=== PATIENT | female | born 1940 | race Caucasian/White ===

== ENCOUNTER → 2017-04-11 | Outpatient (CLI) | payer MEDICARE, OTHER ==
[~2017-04-11] MED LIST: ASPI81TA85 PO; LEVO75TA4 PO; LOSA100T36 PO; OCUVTAB PO; REQU1TAB16 PO; TRIA37.53 PO; VITA100067 PO; [UNRECOGNIZED DRUG - CODE] PO
[2017-04-11 14:12] LABS: CALCIUM LEVEL 9.7 MG/DL (8.8-10.2); CREATININE FOR GFR 1.09 MG/DL (0.55-1.02)
--- NOTE | 2017-04-11 16:50 | REP ---
REASON FOR EXAM: Hypertension. COMPARISON: 12/23/2007, the only prior. FINDINGS: The superior mediastinal structures are midline. The cardiac silhouette is unremarkable in size, shape, and position. The diaphragmatic surfaces of the lungs are regular, and the costophrenic angles are clear. The pulmonary tristan are clear. The imaged osseous structures are intact. No change from prior exam. IMPRESSION: There is no acute cardiopulmonary disease. Signed by Timi Blake DO 04/12/2017 10:50 A
== END ==
LOC: M LAB 12:56
PROVIDERS: ATTEND Physician Assistant
DX: I10 Essential (primary) hypertension (principal); E11.9 Type 2 diabetes mellitus without complications; R05 Cough

== ENCOUNTER → 2017-09-04 | Outpatient (CLI) | payer MEDICARE, OTHER ==
[2017-09-04 11:05] LABS: MEAN CORPUSCULAR HGB CONC 33.5 g/dl (32.0-36.5); MEAN CORPUSCULAR VOLUME 92.6 fl (80.0-96.0); PLATELET COUNT, AUTOMATED 315 10^3/uL (150-450); RED CELL DISTRIBUTION WIDTH 13.3 % (11.5-14.5); WHITE BLOOD COUNT 12.5 10^3/uL (4.0-10.0)
[2017-09-04 11:25] LABS: ALBUMIN/GLOBULIN RATIO 1.05 (1.00-1.93); BILIRUBIN,TOTAL 0.4 MG/DL (0.2-1.0); CALCIUM LEVEL 9.2 MG/DL (8.8-10.2); CREATININE FOR GFR 1.41 MG/DL (0.55-1.02); FREE T4 1.13 NG/DL (0.76-1.46); GLOMERULAR FILTRATION RATE 38.6 (>39); POTASSIUM SERUM 4.3 MEQ/L (3.5-5.1); TOTAL PROTEIN 7.8 GM/DL (6.4-8.2)
== END ==
LOC: M LAB 10:18
PROVIDERS: ATTEND Physician Assistant
DX: E11.9 Type 2 diabetes mellitus without complications (principal); E03.9 Hypothyroidism, unspecified; I10 Essential (primary) hypertension

== ENCOUNTER → 2017-11-27 | Outpatient (CLI) | payer MEDICARE, OTHER ==
[2017-11-27 12:02] LABS: ESTIMATED AVERAGE GLUCOSE 160 MG/DL (60-110); HEMOGLOBIN A1c 7.2 %
[2017-11-27 13:11] LABS: MALB URINE SIEMENS 10.3 MG/L; MAU/CREAT RATIO 4.4 MCG/MG (0.0-30.0)
[2017-11-27 13:14] LABS: ANION GAP 10 MEQ/L (8-16); BLOOD UREA NITROGEN 22 MG/DL (7-18); CALCIUM LEVEL 9.4 MG/DL (8.8-10.2); CARBON DIOXIDE LEVEL 26 MEQ/L (21-32); CHLORIDE LEVEL 102 MEQ/L (98-107); GLOMERULAR FILTRATION RATE 57.4 (>39); GLUCOSE, FASTING 102 MG/DL (70-100); POTASSIUM SERUM 4.2 MEQ/L (3.5-5.1); SODIUM LEVEL 138 MEQ/L (136-145)
== END ==
LOC: M LAB 10:59
DX: E03.9 Hypothyroidism, unspecified (principal); E11.9 Type 2 diabetes mellitus without complications; N18.3 Chronic kidney disease, stage 3 (moderate)
CPT/HCPCS: 84443

== ENCOUNTER → 2018-05-14 | Outpatient (REF) | payer MEDICARE, OTHER | LOC: M SFHCLERA 16:10 | DX: R30.0 Dysuria (principal) | CPT/HCPCS: 87186 ==

== ENCOUNTER → 2018-06-06 | Outpatient (CLI) | payer MEDICARE ==
[2018-06-06 11:11] LABS: HEMATOCRIT 41.6 % (36.0-47.0); HEMOGLOBIN 13.5 g/dl (12.0-15.5); MEAN CORPUSCULAR HEMOGLOBIN 30.8 pg (27.0-33.0); MEAN CORPUSCULAR HGB CONC 32.5 g/dl (32.0-36.5); MEAN CORPUSCULAR VOLUME 94.8 fl (80.0-96.0); PLATELET COUNT, AUTOMATED 309 10^3/uL (150-450); RED BLOOD COUNT 4.39 10^6/uL (4.00-5.40); RED CELL DISTRIBUTION WIDTH 13.2 % (11.5-14.5); WHITE BLOOD COUNT 10.5 10^3/uL (4.0-10.0)
[2018-06-06 11:37] LABS: ESTIMATED AVERAGE GLUCOSE 128 MG/DL (60-110); HEMOGLOBIN A1c 6.1 %
[2018-06-06 11:46] LABS: ALBUMIN 3.8 GM/DL (3.2-5.2); ALBUMIN/GLOBULIN RATIO 0.95 (1.00-1.93); ALKALINE PHOSPHATASE 90 U/L (45-117); ALT/SGPT 25 U/L (12-78); ANION GAP 8 MEQ/L (8-16); AST/SGOT 21 U/L (7-37); BILIRUBIN,TOTAL 0.4 MG/DL (0.2-1.0); BLOOD UREA NITROGEN 21 MG/DL (7-18); CALCIUM LEVEL 8.9 MG/DL (8.8-10.2); CARBON DIOXIDE LEVEL 30 MEQ/L (21-32); CHLORIDE LEVEL 102 MEQ/L (98-107); CHOLESTEROL LEVEL 277 MG/DL (<200); CHOLESTEROL RISK RATIO 7.486 (<5); CREATININE FOR GFR 0.98 MG/DL (0.55-1.30); FREE T4 1.08 NG/DL (0.76-1.46); GLOMERULAR FILTRATION RATE 58.6 (>39); GLUCOSE, FASTING 94 MG/DL (70-100); HDL CHOLESTEROL 37 MG/DL (>40); LDL CHOLESTEROL 172 MG/DL (<100); NON-HDL-C 240 MG/DL; POTASSIUM SERUM 3.8 MEQ/L (3.5-5.1); SODIUM LEVEL 140 MEQ/L (136-145); TOTAL PROTEIN 7.8 GM/DL (6.4-8.2); TRIGLYCERIDES LEVEL 338 MG/DL (<150)
== END ==
LOC: M LAB 10:48
DX: G25.81 Restless legs syndrome (principal); E11.9 Type 2 diabetes mellitus without complications; E03.9 Hypothyroidism, unspecified
CPT/HCPCS: 84443

== ENCOUNTER → 2018-10-31 | Outpatient (REF) | payer MEDICARE, OTHER ==
[~2018-10-31] MED LIST changes: -LOSA100T36 PO; +LOSA100T50 PO
== END ==
LOC: M LAB REF 12:35
PROVIDERS: ATTEND Physician Assistant
DX: R30.0 Dysuria (principal); J20.9 Acute bronchitis, unspecified

== ENCOUNTER → 2018-11-19 | Outpatient (REF) | payer MEDICARE, OTHER | LOC: M SFHCADAM 13:50 | PROVIDERS: ATTEND Physician Assistant | DX: N30.00 Acute cystitis without hematuria (principal) ==

== ENCOUNTER → 2019-03-06 | Outpatient (REF) | payer MEDICARE, OTHER | LOC: M LAB REF 16:24 | PROVIDERS: ATTEND Physician Assistant | DX: R30.0 Dysuria (principal) ==

== ENCOUNTER → 2019-03-25 | Outpatient (CLI) | payer MEDICARE, OTHER ==
[2019-03-25 11:33] LABS: HEMOGLOBIN A1c 6.9 %
[2019-03-25 11:50] LABS: ALBUMIN 3.7 GM/DL (3.2-5.2); BILIRUBIN,TOTAL 0.4 MG/DL (0.2-1.0); CALCIUM LEVEL 9.7 MG/DL (8.8-10.2); CHOLESTEROL RISK RATIO 5.977 (<5); CREATININE FOR GFR 1.08 MG/DL (0.55-1.30); FREE T4 1.18 NG/DL (0.76-1.46); GLOMERULAR FILTRATION RATE 52.2 (>39); POTASSIUM SERUM 4.3 MEQ/L (3.5-5.1); THYROID STIMULATING HORMONE 1.91 uIU/ML (0.358-3.740); TOTAL PROTEIN 7.5 GM/DL (6.4-8.2)
== END ==
LOC: M LAB 10:28
PROVIDERS: ATTEND Family Medicine
DX: I10 Essential (primary) hypertension (principal); E03.9 Hypothyroidism, unspecified; E11.9 Type 2 diabetes mellitus without complications; E78.49 Other hyperlipidemia

== ENCOUNTER → 2019-04-10 | Outpatient (CLI) | payer MEDICARE, OTHER ==
[2019-04-10 14:50] LABS: CREATININE FOR GFR 1.01 MG/DL (0.55-1.30); GLOMERULAR FILTRATION RATE 56.4 (>39)
== END ==
LOC: M LAB 13:55
PROVIDERS: ATTEND Student in an Organized Health Care Education/Training Program
DX: I67.1 Cerebral aneurysm, nonruptured (principal)

== ENCOUNTER → 2019-05-06 | Outpatient (REF) | payer MEDICARE, OTHER | LOC: M LAB REF 19:25 | PROVIDERS: ATTEND Physician Assistant | DX: N39.0 Urinary tract infection, site not specified (principal) ==

== ENCOUNTER → 2019-05-07 | Outpatient (CLI) | payer MEDICARE, OTHER ==
[2019-05-07 09:13] LABS: CREATININE FOR GFR 1.15 MG/DL (0.55-1.30); GLOMERULAR FILTRATION RATE 48.6 (>39)
== END ==
LOC: M LAB 08:20
PROVIDERS: ATTEND Student in an Organized Health Care Education/Training Program
DX: I67.1 Cerebral aneurysm, nonruptured (principal)

== ENCOUNTER → 2019-06-01 | Outpatient (REF) | payer MEDICARE, OTHER | LOC: M LAB REF 13:11 | PROVIDERS: ATTEND Physician Assistant | DX: N39.0 Urinary tract infection, site not specified (principal) ==

== ENCOUNTER → 2019-09-25 | Outpatient (CLI) | payer MEDICARE ==
[2019-09-25 14:56] LABS: HEMOGLOBIN A1c 6.8 %
[2019-09-25 15:02] LABS: ALT/SGPT 29 U/L (12-78); BILIRUBIN,TOTAL 0.3 MG/DL (0.2-1.0); BLOOD UREA NITROGEN 31 MG/DL (7-18); CALCIUM LEVEL 9.4 MG/DL (8.8-10.2); CARBON DIOXIDE LEVEL 30 MEQ/L (21-32); CHLORIDE LEVEL 103 MEQ/L (98-107); CREATININE FOR GFR 0.84 MG/DL (0.55-1.30); GLOMERULAR FILTRATION RATE > 60.0 (>39); GLUCOSE, FASTING 90 MG/DL (70-100); POTASSIUM SERUM 4.4 MEQ/L (3.5-5.1); SODIUM LEVEL 141 MEQ/L (136-145); TOTAL PROTEIN 7.6 GM/DL (6.4-8.2)
[2019-09-25 15:09] LABS: MAU/CREAT RATIO 8.5 MCG/MG (0.0-30.0)
== END ==
LOC: M LAB 13:09
PROVIDERS: ATTEND Physician Assistant
DX: E11.9 Type 2 diabetes mellitus without complications (principal)

== ENCOUNTER → 2019-11-10 | Outpatient (CLI) | payer MEDICARE ==
[2019-11-10 15:29] LABS: FREE T4 1.25 NG/DL (0.76-1.46); THYROID STIMULATING HORMONE 1.06 uIU/ML (0.358-3.740)
== END ==
LOC: M LAB 13:50
PROVIDERS: ATTEND Family Medicine
DX: E03.9 Hypothyroidism, unspecified (principal)

== ENCOUNTER → 2019-11-10 | Outpatient (CLI) | payer MEDICARE ==
--- NOTE | 2019-11-10 14:38 | REPMRS ---
Patient History The patient states she has not had a clinical breast exam in over a year. Family history of breast cancer at age 50 or over in sister, breast cancer at age 50 or over in sister, breast cancer under age 50 in daughter, breast cancer at age 50 or over in paternal aunt, breast cancer at age 50 or over in paternal aunt, colorectal cancer at age 50 or over in paternal aunt, prostate cancer at age 50 or over in father. Took estrogen for 21 years. Digital Woman Screen Mammo: November 10, 2019 - Exam #: [id number] Bilateral CC and MLO view(s) were taken. Technologist: Jessica Warren, Technologist Prior study comparison: July 02, 2016, digital woman screen mammo performed at [facility], [place]. June 28, 2015, digital woman screen mammo performed at [facility], [place]. October 09, 2013, digital woman screen mammo performed at [facility], [place]. FINDINGS: The breast tissue is heterogeneously dense. This may lower the sensitivity of mammography. There is a moderate amount of heterogeneously dense fibroglandular tissue which is fairly symmetric. There is no interval development of dominant mass, architectural distortion, or grouped microcalcification typical of malignancy. There has been no change in the appearance of the mammogram from the prior studies. 3-D tomosynthesis shows no additional findings. Assessment: BI-RADS/ACR category 1 mammogram. Negative Mammogram. Recommendation Routine screening mammogram of both breasts in 1 year (for women over age 40). This patient's Lifetime Breast Cancer RIsk is estimated at 8.0 %. This mammogram was interpreted with the aid of an FDA-approved computer-aided dectection system. Electronically Signed By: Melchor Kee MD 11/10/19 [id number]
--- NOTE | 2019-11-19 08:48 | DEXA ---
AP SPINE L1 - L4 1.461 2.2 4.0 LT FEMUR TOTAL 1.093 0.7 2.6 LT NECK 0.980 -0.4 1.7 RT FEMUR TOTAL 1.128 1.0 2.9 RT NECK 0.938 -0.7 1.4 TOTAL BODY TOTAL OTHER COMMENTS: Normal bone densitometry of the spine and hips. The density of the spine has increased 22.4% since the initial exam on 03/24/2003. The spine density has increased 3.9% since the most recent exam on 07/02/2016. The density of the left hip has decreased 1.6% since the initial exam on 03/24/2003. The density of the left hip has increased 1.0% since the most recent exam on 07/02/2016. The density of the right hip has increased 4.4% since the initial exam on 03/24/2003. The density of the right hip has increased 2.6% since the most recent exam on 07/02/2016. FOLLOW-UP: Recommendation for the next bone density exam: 5 years. ALIA
== END ==
LOC: M WHC 12:49
PROVIDERS: ATTEND Family Medicine
DX: Z12.31 Encounter for screening mammogram for malignant neoplasm of breast (principal); Z13.820 Encounter for screening for osteoporosis; Z80.0 Family history of malignant neoplasm of digestive organs; Z80.3 Family history of malignant neoplasm of breast; E03.9 Hypothyroidism, unspecified; Z79.82 Long term (current) use of aspirin; Z79.899 Other long term (current) drug therapy; M85.89 Other specified disorders of bone density and structure, multiple sites

== ENCOUNTER → 2020-01-15 | Outpatient (REF) | payer MEDICARE | LOC: M LAB REF 15:53 | PROVIDERS: ATTEND Nurse Practitioner Family | DX: N39.0 Urinary tract infection, site not specified (principal) ==

== ENCOUNTER → 2020-03-28 | Outpatient (CLI) | payer MEDICARE ==
[~2020-03-28] MED LIST changes: -ASPI81TA85 PO; +ASPI81TA86 PO
[2020-03-28 13:13] LABS: ALBUMIN 3.7 GM/DL (3.2-5.2); BILIRUBIN,TOTAL 0.4 MG/DL (0.2-1.0); CALCIUM LEVEL 9.2 MG/DL (8.8-10.2); CHOLESTEROL RISK RATIO 7.205 (<5); CREATININE FOR GFR 0.96 MG/DL (0.55-1.30); FREE T4 1.27 NG/DL (0.76-1.46); GLOMERULAR FILTRATION RATE 59.7 (>39); POTASSIUM SERUM 4.2 MEQ/L (3.5-5.1); THYROID STIMULATING HORMONE 1.62 uIU/ML (0.358-3.740); TOTAL PROTEIN 7.6 GM/DL (6.4-8.2)
[2020-03-28 16:54] LABS: HEMOGLOBIN A1c 7.4 %
== END ==
LOC: M LAB 11:35
PROVIDERS: ATTEND Family Medicine
DX: E03.9 Hypothyroidism, unspecified (principal); E78.5 Hyperlipidemia, unspecified; E11.9 Type 2 diabetes mellitus without complications

== ENCOUNTER → 2020-06-29 | Outpatient (CLI) | payer MEDICARE ==
[2020-06-29 11:11] LABS: CALCIUM LEVEL 9.4 MG/DL (8.8-10.2); CREATININE FOR GFR 0.96 MG/DL (0.55-1.30); GLOMERULAR FILTRATION RATE 59.7 (>39); HEMOGLOBIN A1c 6.6 %; POTASSIUM SERUM 4.2 MEQ/L (3.5-5.1)
== END ==
LOC: M LAB 09:37
PROVIDERS: ATTEND Family Medicine
DX: E11.9 Type 2 diabetes mellitus without complications (principal)

== ENCOUNTER → 2020-10-14 | Outpatient (REF) | payer MEDICARE ==
[2020-10-14 16:56] LABS: CALCIUM LEVEL 11.1 MG/DL (8.8-10.2); CREATININE FOR GFR 0.98 MG/DL (0.55-1.30); FREE T4 1.13 NG/DL (0.76-1.46); GLOMERULAR FILTRATION RATE 58.3 (>39); POTASSIUM SERUM 4.9 MEQ/L (3.5-5.1); THYROID STIMULATING HORMONE 2.38 uIU/ML (0.358-3.740)
[2020-10-14 17:31] LABS: HEMOGLOBIN A1c 6.4 %
== END ==
LOC: M SFHCADAM 13:54
PROVIDERS: ATTEND Family Medicine
DX: E03.9 Hypothyroidism, unspecified (principal); E11.9 Type 2 diabetes mellitus without complications
CPT/HCPCS: 80048; 83036; 84439; 84443; G0463

== ENCOUNTER → 2020-10-20 | Outpatient (REF) | payer MEDICARE ==
[2020-10-20 14:53] LABS: ALBUMIN 3.5 GM/DL (3.2-5.2); BLOOD UREA NITROGEN 27 MG/DL (7-18); CALCIUM LEVEL 9.6 MG/DL (8.8-10.2); CARBON DIOXIDE LEVEL 31 MEQ/L (21-32); CHLORIDE LEVEL 105 MEQ/L (98-107); CREATININE FOR GFR 0.88 MG/DL (0.55-1.30); GLOMERULAR FILTRATION RATE > 60.0 (>39); GLUCOSE, FASTING 160 MG/DL (70-100); PHOSPHORUS LEVEL 2.4 MG/DL (2.5-4.9); SODIUM LEVEL 142 MEQ/L (136-145)
[2020-10-20 15:01] LABS: PTH INTACT 56.5 PG/ML (18.5-88.0)
== END ==
LOC: M SFHCADAM 09:44
PROVIDERS: ATTEND Family Medicine
DX: E83.52 Hypercalcemia (principal)

== ENCOUNTER → 2021-02-17 | Outpatient (CLI) | payer MEDICARE ==
[2021-02-17 10:06] LABS: HEMATOCRIT 45.8 % (36.0-47.0); HEMOGLOBIN 14.8 g/dl (12.0-15.5); MEAN CORPUSCULAR HGB CONC 32.3 g/dl (32.0-36.5); MEAN CORPUSCULAR VOLUME 95.8 fl (80.0-96.0); PLATELET COUNT, AUTOMATED 331 10^3/uL (150-450); RED BLOOD COUNT 4.78 10^6/uL (4.00-5.40); WHITE BLOOD COUNT 10.4 10^3/uL (4.0-10.0)
[2021-02-17 10:23] LABS: HEMOGLOBIN A1c 6.7 %
[2021-02-17 10:37] LABS: ALBUMIN 3.9 GM/DL (3.2-5.2); ALT/SGPT 24 U/L (12-78); BILIRUBIN,TOTAL 0.4 MG/DL (0.2-1.0); BLOOD UREA NITROGEN 27 MG/DL (7-18); CALCIUM LEVEL 9.5 MG/DL (8.8-10.2); CARBON DIOXIDE LEVEL 25 MEQ/L (21-32); CHLORIDE LEVEL 103 MEQ/L (98-107); CHOLESTEROL LEVEL 261 MG/DL (<200); CHOLESTEROL RISK RATIO 5.931 (<5); CREATININE FOR GFR 0.88 MG/DL (0.55-1.30); FREE T4 1.21 NG/DL (0.76-1.46); GLOMERULAR FILTRATION RATE > 60.0 (>32); GLUCOSE, FASTING 107 MG/DL (70-100); HDL CHOLESTEROL 44 MG/DL (>40); LDL CHOLESTEROL 160 MG/DL (<100); NON-HDL-C 217 MG/DL; POTASSIUM SERUM 4.4 MEQ/L (3.5-5.1); SODIUM LEVEL 137 MEQ/L (136-145); THYROID STIMULATING HORMONE 0.956 uIU/ML (0.358-3.740); TOTAL PROTEIN 7.7 GM/DL (6.4-8.2); TRIGLYCERIDES LEVEL 284 MG/DL (<150)
[2021-02-17 10:40] LABS: MALB URINE SIEMENS 13.5 MG/L; MAU/CREAT RATIO 7.9 MCG/MG (0.0-30.0)
== END ==
LOC: M LAB 09:22
PROVIDERS: ATTEND Family Medicine
DX: E11.9 Type 2 diabetes mellitus without complications (principal)

== ENCOUNTER → 2021-05-21 | Outpatient (REF) | payer MEDICARE | LOC: M WUC 18:11 | PROVIDERS: ATTEND Physician Assistant | DX: R30.0 Dysuria (principal) ==

== ENCOUNTER → 2021-06-06 | Outpatient (CLI) | payer MEDICARE ==
[2021-06-06 11:56] LABS: BLOOD UREA NITROGEN 23 MG/DL (7-18); CREATININE FOR GFR 0.95 MG/DL (0.55-1.30); GLOMERULAR FILTRATION RATE > 60.0 (>32)
== END ==
LOC: M LAB 10:44
PROVIDERS: ATTEND Neurological Surgery
DX: I67.1 Cerebral aneurysm, nonruptured (principal)

== ENCOUNTER → 2021-06-30 | Outpatient (CLI) | payer MEDICARE ==
--- NOTE | 2021-06-30 14:39 | REP ---
INDICATION: COUGH, SOB COMPARISON: None TECHNIQUE: PA and lateral. FINDINGS: The mediastinum and cardiac silhouette are normal. The lung tristan are clear and without acute consolidation, effusion, or pneumothorax. The skeletal structures are intact and normal. IMPRESSION: No acute cardiopulmonary process. <Electronically signed by Leon Burnett > 06/30/21 [id number]
== END ==
LOC: M LAB 14:18
PROVIDERS: ATTEND Physician Assistant
DX: R05.9 Cough, unspecified (principal); R06.02 Shortness of breath

== ENCOUNTER → 2021-08-14 | Outpatient (CLI) | payer MEDICARE ==
[~2021-08-14] MED LIST changes: +LOSA100T45 PO; -LOSA100T50 PO
[2021-08-14 13:04] LABS: HEMOGLOBIN A1c 6.9 %
[2021-08-14 13:08] LABS: BLOOD UREA NITROGEN 27 MG/DL (7-18); CARBON DIOXIDE LEVEL 29 MEQ/L (21-32); CHLORIDE LEVEL 101 MEQ/L (98-107); CREATININE FOR GFR 0.95 MG/DL (0.55-1.30); GLOMERULAR FILTRATION RATE > 60.0 (>32); GLUCOSE, FASTING 123 MG/DL (70-100); POTASSIUM SERUM 4.3 MEQ/L (3.5-5.1); SODIUM LEVEL 138 MEQ/L (136-145)
== END ==
LOC: M LAB 10:24
PROVIDERS: ATTEND Family Medicine
DX: E11.9 Type 2 diabetes mellitus without complications (principal)

== ENCOUNTER → 2021-12-20 | Outpatient (CLI) | payer MEDICARE ==
[2021-12-20 09:19] LABS: HEMATOCRIT 40.2 % (36.0-47.0); HEMOGLOBIN 13.1 g/dl (12.0-15.5); MEAN CORPUSCULAR HEMOGLOBIN 30.8 pg (27.0-33.0); MEAN CORPUSCULAR HGB CONC 32.6 g/dl (32.0-36.5); MEAN CORPUSCULAR VOLUME 94.6 fl (80.0-96.0); PLATELET COUNT, AUTOMATED 310 10^3/uL (150-450); RED BLOOD COUNT 4.25 10^6/uL (4.00-5.40); WHITE BLOOD COUNT 7.6 10^3/uL (4.0-10.0)
[2021-12-20 09:48] LABS: MALB URINE SIEMENS 14.3 MG/L; MAU/CREAT RATIO 13.8 MCG/MG (0.0-30.0)
[2021-12-20 09:59] LABS: BILIRUBIN,TOTAL 0.5 MG/DL (0.2-1.0); CALCIUM LEVEL 9.7 MG/DL (8.8-10.2); CHOLESTEROL RISK RATIO 5.756 (<5); CREATININE FOR GFR 2.12 MG/DL (0.55-1.30); FREE T4 1.77 NG/DL (0.76-1.46); GLOMERULAR FILTRATION RATE 23.9 (>32); POTASSIUM SERUM 4.3 MEQ/L (3.5-5.1); THYROID STIMULATING HORMONE 0.566 uIU/ML (0.358-3.740); TOTAL PROTEIN 7.5 GM/DL (6.4-8.2)
[2021-12-20 10:30] LABS: HEMOGLOBIN A1c 6.6 %
== END ==
LOC: M LAB 08:25
PROVIDERS: ATTEND Family Medicine
DX: N18.31 Chronic kidney disease, stage 3a (principal); E07.9 Disorder of thyroid, unspecified; E78.00 Pure hypercholesterolemia, unspecified

== ENCOUNTER → 2021-12-27 | Outpatient (REF) | payer MEDICARE ==
[2021-12-27 13:26] LABS: APPEARANCE, URINE CLOUDY (CLEAR); BACTERIA, URINE AUTO 3+ (NEGATIVE); BILIRUBIN, URINE AUTO NEGATIVE (NEGATIVE); BLOOD, URINE BLOOD NEGATIVE (NEGATIVE); COLOR, URINE YELLOW (YELLOW); GLUCOSE, URINE (UA) AUTO NEGATIVE (NEGATIVE); KETONE, URINE AUTO NEGATIVE (NEGATIVE); LEUKOCYTE ESTERASE, URINE AUTO TRACE (NEGATIVE); MUCUS, URINE SMALL (NEGATIVE); NITRITE, URINE AUTO NEGATIVE (NEGATIVE); PROTEIN, URINE AUTO NEGATIVE (NEGATIVE); RBC, URINE AUTO 0 /HPF (0-3); SPECIFIC GRAVITY URINE AUTO 1.015 (1.002-1.035); SQUAMOUS EPITHELIAL CELL UR AU 5 /HPF (0-6); TRANSITIONAL EPITHELIAL AUTO <1 /HPF; UROBILINOGEN, URINE AUTO 0.2 mg/dL (0.0-2.0); WBC, URINE AUTO 13 /HPF (0-3)
== END ==
LOC: M SFHCADAM 10:18
PROVIDERS: ATTEND Family Medicine
DX: E11.9 Type 2 diabetes mellitus without complications (principal); Z79.899 Other long term (current) drug therapy

== ENCOUNTER → 2022-01-25 | Outpatient (CLI) | payer MEDICARE ==
[2022-01-25 11:19] LABS: ALBUMIN 3.7 GM/DL (3.2-5.2); CREATININE FOR GFR 1.11 MG/DL (0.55-1.30); GLOMERULAR FILTRATION RATE 50.2 (>32); PHOSPHORUS LEVEL 3.6 MG/DL (2.5-4.9); POTASSIUM SERUM 4.3 MEQ/L (3.5-5.1)
== END ==
LOC: M LAB 09:37
PROVIDERS: ATTEND Family Medicine
DX: N17.9 Acute kidney failure, unspecified (principal)

== ENCOUNTER → 2022-05-27 | Outpatient (CLI) | payer MEDICARE ==
[~2022-05-27] MED LIST changes: -TRIA37.53 PO; +TRIA37.577 PO
[2022-05-27 09:57] LABS: CALCIUM LEVEL 9.6 MG/DL (8.8-10.2); CREATININE FOR GFR 1.13 MG/DL (0.55-1.30); GLOMERULAR FILTRATION RATE 49.2 (>32); POTASSIUM SERUM 4.6 MEQ/L (3.5-5.1)
== END ==
LOC: M LAB 08:33
PROVIDERS: ATTEND Family Medicine
DX: I10 Essential (primary) hypertension (principal)

== ENCOUNTER → 2022-05-29 | Outpatient (REF) | payer MEDICARE ==
[2022-05-29 19:01] LABS: FREE T4 1.03 NG/DL (0.76-1.46); THYROID STIMULATING HORMONE 2.66 uIU/ML (0.358-3.740)
[2022-05-29 19:24] LABS: HEMOGLOBIN A1c 6.4 %
== END ==
LOC: M SFHCADAM 13:45
PROVIDERS: ATTEND Family Medicine
DX: E11.9 Type 2 diabetes mellitus without complications (principal); E03.9 Hypothyroidism, unspecified

== ENCOUNTER → 2022-08-25 | Outpatient (REF) | payer MEDICARE ==
[~2022-08-25] MED LIST changes: +ASPI81TA26 PO; +CEPH500C PO; +GABA-1171 PO; +LORA-753 PO; +ROPI1TAB86 PO; +SYNT88TA2 PO; +VITA100093 PO
== END ==
LOC: M LAB REF 19:05
PROVIDERS: ATTEND Physician Assistant
DX: R30.0 Dysuria (principal)

== ENCOUNTER 2022-08-26 08:13 | Inpatient (IN) | payer MEDICARE ==
[2022-08-26] VITALS (7 sets, daily range): BP systolic 150–185; BP diastolic 56–81
[~2022-08-26] VITALS: Ht 157.5 cm; Wt 69.1 kg
[~2022-08-26 08:13] MED LIST changes: -ASPI81TA26 PO; -CEPH500C PO; -GABA-1171 PO; -LORA-753 PO; -ROPI1TAB86 PO; -SYNT88TA2 PO; -VITA100093 PO
[2022-08-26] MEDS ORDERED: ISOVUE-370 76% 100ML VIAL As Ordered ONE (08:48)
[2022-08-26] MEDS: DYAZIDE 37.5/25 CAP (TRIAM/HCTZ) PO SCH (09:00)
[2022-08-26] MEDS: CEFDINIR 300 MG CAP (OMNICEF) PO SCH ×2 (09:00→20:31)
[2022-08-26] MEDS ORDERED: GABA-1171 PO (09:16)
[2022-08-26] MEDS ORDERED: CEPH500C PO (09:16)
[2022-08-26 09:26] LABS: BASO # 0.1 10^3/uL (0.0-0.2); BASO % 1.1 % (0.0-1.0); EOS # 0.5 10^3/uL (0.0-0.5); EOS % 4.5 % (0.0-3.0); HEMATOCRIT 44.1 % (36.0-47.0); HEMOGLOBIN 14.3 g/dl (12.0-15.5); LYMPH # 3.4 10^3/uL (1.5-5.0); LYMPH % 32.5 % (24.0-44.0); MEAN CORPUSCULAR HGB CONC 32.4 g/dl (32.0-36.5); MEAN CORPUSCULAR VOLUME 95.7 fl (80.0-96.0); MONO # 0.9 10^3/uL (0.0-0.8); MONO % 8.3 % (2.0-8.0); NEUTROPHILS # 5.6 10^3/uL (1.5-8.5); NEUTROPHILS % 53.3 % (36.0-66.0); PLATELET COUNT, AUTOMATED 322 10^3/uL (150-450); RED BLOOD COUNT 4.61 10^6/uL (4.00-5.40); WHITE BLOOD COUNT 10.5 10^3/uL (4.0-10.0)
[2022-08-26 09:32] LABS: INR 0.98; PROTHROMBIN TIME 13.2 SECONDS (12.5-14.5)
[2022-08-26 09:33] LABS: PARTIAL THROMBOPLASTIN TIME 31.2 SECONDS (24.8-34.2)
[2022-08-26 09:36] LABS: LIPASE 28 U/L (12-53)
[2022-08-26 09:38] LABS: ALBUMIN 3.9 G/DL (3.2-5.2); ALKALINE PHOSPHATASE 91 U/L (46-116); ALT/SGPT 18 U/L (7.0-40); AST/SGOT 22 U/L (<34); BILIRUBIN,DIRECT < 0.1 MG/DL (<0.4); BILIRUBIN,TOTAL 0.4 MG/DL (0.3-1.2); TOTAL PROTEIN 7.6 G/DL (5.7-8.2)
[2022-08-26 10:12] LABS: RSV AMPLIFICATION NEGATIVE (NEGATIVE)
[2022-08-26] MEDS ORDERED: VITA100093 PO (10:43)
[2022-08-26] MEDS ORDERED: OCUVTAB PO (10:43)
[2022-08-26] MEDS ORDERED: SYNT88TA2 PO (10:43)
[2022-08-26] MEDS ORDERED: ROPI1TAB86 PO (10:43)
[2022-08-26] MEDS ORDERED: ASPI81TA26 PO (10:43)
[2022-08-26 10:52] LABS: CK-MB VALUE MASS 1.6 NG/ML (<3.6)
[2022-08-26 11:29] LABS: MB/CK RELATIVE INDEX 0.68 (< OR =4)
[2022-08-26] MEDS ORDERED: LORA-753 PO (11:52)
[2022-08-26] MEDS ORDERED: HOME MED LIST COMPLETE! XX SCH (11:55)
[2022-08-26] MEDS ORDERED: LOSARTAN 50MG TABLET PO ONE ×2 (12:30→18:00)
[2022-08-26] MEDS: LEVOTHYROXINE 88MCG TABLET (0.088 MG) PO SCH (12:44)
[2022-08-26] MEDS: ASPIRIN 81MG ENTERIC TABLET PO SCH (12:44)
[2022-08-26] MEDS: LORATADINE 10 MG TAB PO SCH (12:44)
[2022-08-26] MEDS: VITAMIN D 1,000 INTERNATIONAL UNITS TABLET PO SCH (12:44)
[2022-08-26] MEDS: ATORVASTATIN 10 MG TAB PO SCH (12:47)
[2022-08-26 13:00] LABS: HEMOGLOBIN A1c 6.4 % (4.0-6.0)
[2022-08-26 13:52] LABS: BLOOD UREA NITROGEN 25 MG/DL (9-23); CALCIUM LEVEL 9.8 MG/DL (8.3-10.6); CARBON DIOXIDE LEVEL 24 MMOL/L (20-31); CHLORIDE LEVEL 100 MMOL/L (98-107); CHOLESTEROL LEVEL 291 MG/DL (<200); CHOLESTEROL RISK RATIO 6.06 (<5); GLOMERULAR FILTRATION RATE > 60.0 (>32); GLUCOSE, FASTING 112 MG/DL (74-106); LDL CHOLESTEROL 186.8 MG/DL (<100); NON-HDL-C 243 MG/DL; POTASSIUM SERUM 4.3 MMOL/L (3.5-5.1); SODIUM LEVEL 137 MMOL/L (136-145); TRIGLYCERIDES LEVEL 281 MG/DL (<150)
[2022-08-26 15:58] LABS: APPEARANCE, URINE MANUAL CLEAR (CLEAR); BILIRUBIN, URINE MANUAL NEGATIVE (NEGATIVE); COLOR, URINE MANUAL YELLOW (YELLOW); GLUCOSE, URINE (UA) MANUAL NEGATIVE (NEGATIVE); KETONE, URINE MANUAL NEGATIVE (NEGATIVE); PROTEIN, URINE MANUAL NEGATIVE (NEGATIVE); SPECIFIC GRAVITY,URINE MANUAL 1.015 (1.002-1.035); UROBILINOGEN, URINE MANUAL NORMAL (NORMAL)
[2022-08-26 15:59] LABS: BLOOD URINE MANUAL NEGATIVE (NEGATIVE); LEUKOCYTE ESTERASE, URINE MAN TRACE (NEGATIVE); NITRITE, URINE MANUAL POSITIVE (NEGATIVE)
[2022-08-26 16:41] LABS: BACTERIA, URINE SMALL AMOUNT; RBC, URINE 0-1 /hpf (0-3); SQUAMOUS EPITHELIAL CELL URINE LARGE AMOUNT /hpf (SMALL AMT); WBC, URINE 0-1 /hpf (0-3)
[2022-08-26] MEDS: GABAPENTIN 100 MG CAP PO SCH ×2 (18:40→20:31)
[2022-08-26] MEDS: rOPINIRole 1MG TAB PO SCH ×2 (20:31→21:00)
[2022-08-26] MEDS: HEPARIN SOD (PORCINE) 5000UNITS/ML 1ML VIAL/SYRINGE SC SCH (20:32)
[2022-08-26] MEDS ORDERED: GABAPENTIN 100 MG CAP PO SCH (21:00)
[2022-08-26] MEDS ORDERED: rOPINIRole 1MG TAB PO SCH (21:00)
[2022-08-26] MEDS ORDERED: **hydrALAZINE HCL** 25 MG TAB PO PRN (21:50)
[2022-08-27] MEDS: LEVOTHYROXINE 88MCG TABLET (0.088 MG) PO SCH (06:34)
[2022-08-27] MEDS: HEPARIN SOD (PORCINE) 5000UNITS/ML 1ML VIAL/SYRINGE SC SCH ×3 (06:37→22:11)
[2022-08-27 06:40] LABS: HEMATOCRIT 42.9 % (36.0-47.0); HEMOGLOBIN 13.9 g/dl (12.0-15.5); MEAN CORPUSCULAR HGB CONC 32.4 g/dl (32.0-36.5); MEAN CORPUSCULAR VOLUME 95.8 fl (80.0-96.0); PLATELET COUNT, AUTOMATED 317 10^3/uL (150-450); RED BLOOD COUNT 4.48 10^6/uL (4.00-5.40); WHITE BLOOD COUNT 9.8 10^3/uL (4.0-10.0)
[2022-08-27 07:04] LABS: BLOOD UREA NITROGEN 23 MG/DL (9-23); CALCIUM LEVEL 9.2 MG/DL (8.3-10.6); CARBON DIOXIDE LEVEL 25 MMOL/L (20-31); CHLORIDE LEVEL 101 MMOL/L (98-107); CREATININE FOR GFR 0.76 MG/DL (0.55-1.30); GLOMERULAR FILTRATION RATE > 60.0 (>32); GLUCOSE, FASTING 109 MG/DL (74-106); POTASSIUM SERUM 4.2 MMOL/L (3.5-5.1); SODIUM LEVEL 137 MMOL/L (136-145)
[2022-08-27] MEDS: DYAZIDE 37.5/25 CAP (TRIAM/HCTZ) PO SCH (10:00)
[2022-08-27] MEDS: OCUVITE 1 TAB PO SCH (10:01)
[2022-08-27] MEDS: ATORVASTATIN 10 MG TAB PO SCH (10:01)
[2022-08-27] MEDS: LORATADINE 10 MG TAB PO SCH (10:02)
[2022-08-27] MEDS: ASPIRIN 81MG ENTERIC TABLET PO SCH (10:02)
[2022-08-27] MEDS: LOSARTAN 50MG TABLET PO SCH (10:03)
[2022-08-27] MEDS: CEFDINIR 300 MG CAP (OMNICEF) PO SCH ×2 (11:56→20:36)
[2022-08-27] MEDS: VITAMIN D 1,000 INTERNATIONAL UNITS TABLET PO SCH (11:56)
[2022-08-27 13:35] VITALS: BP 149/79
[2022-08-27] MEDS: ANALGESIC BALM CRM 3OZ TOP PRN (18:04)
[2022-08-27] MEDS: GABAPENTIN 100 MG CAP PO SCH (20:36)
[2022-08-27] MEDS: rOPINIRole 1MG TAB PO SCH (20:36)
[2022-08-27 21:30] VITALS: BP 149/77
[2022-08-28 05:56] VITALS: BP 159/68
[2022-08-28] MEDS: LEVOTHYROXINE 88MCG TABLET (0.088 MG) PO SCH (05:57)
[2022-08-28] MEDS: HEPARIN SOD (PORCINE) 5000UNITS/ML 1ML VIAL/SYRINGE SC SCH ×3 (05:57→21:32)
[2022-08-28 06:41] LABS: HEMATOCRIT 43.4 % (36.0-47.0); HEMOGLOBIN 13.9 g/dl (12.0-15.5); MEAN CORPUSCULAR HEMOGLOBIN 30.9 pg (27.0-33.0); MEAN CORPUSCULAR VOLUME 96.4 fl (80.0-96.0); PLATELET COUNT, AUTOMATED 311 10^3/uL (150-450); WHITE BLOOD COUNT 9.8 10^3/uL (4.0-10.0)
[2022-08-28 07:14] LABS: BLOOD UREA NITROGEN 22 MG/DL (9-23); CALCIUM LEVEL 9.6 MG/DL (8.3-10.6); CARBON DIOXIDE LEVEL 26 MMOL/L (20-31); CHLORIDE LEVEL 100 MMOL/L (98-107); CREATININE FOR GFR 0.77 MG/DL (0.55-1.30); GLOMERULAR FILTRATION RATE > 60.0 (>32); GLUCOSE, FASTING 142 MG/DL (74-106); POTASSIUM SERUM 4.3 MMOL/L (3.5-5.1); SODIUM LEVEL 137 MMOL/L (136-145)
[2022-08-28] MEDS: OCUVITE 1 TAB PO SCH (08:57)
[2022-08-28] MEDS: CEFDINIR 300 MG CAP (OMNICEF) PO SCH ×2 (08:58→21:33)
[2022-08-28] MEDS: ASPIRIN 81MG ENTERIC TABLET PO SCH (08:58)
[2022-08-28] MEDS: LOSARTAN 50MG TABLET PO SCH (09:01)
[2022-08-28] MEDS: VITAMIN D 1,000 INTERNATIONAL UNITS TABLET PO SCH (09:02)
[2022-08-28] MEDS: LORATADINE 10 MG TAB PO SCH (09:02)
[2022-08-28] MEDS: DYAZIDE 37.5/25 CAP (TRIAM/HCTZ) PO SCH (09:02)
[2022-08-28] MEDS: ANALGESIC BALM CRM 3OZ TOP PRN ×3 (09:03→22:55)
[2022-08-28 14:00] VITALS: BP 146/68
[2022-08-28] MEDS: ACETAMINOPHEN TAB 650MG DOSE (2X325MG) PO PRN (15:25)
[2022-08-28 20:02] VITALS: BP 117/61
[2022-08-28] MEDS: rOPINIRole 1MG TAB PO SCH (21:32)
[2022-08-28] MEDS: ATORVASTATIN 10 MG TAB PO SCH (21:33)
[2022-08-28] MEDS: GABAPENTIN 100 MG CAP PO SCH (21:33)
[2022-08-29 05:30] VITALS: BP 117/61
[2022-08-29] MEDS: HEPARIN SOD (PORCINE) 5000UNITS/ML 1ML VIAL/SYRINGE SC SCH ×3 (05:43→21:23)
[2022-08-29] MEDS: LEVOTHYROXINE 88MCG TABLET (0.088 MG) PO SCH (05:43)
[2022-08-29 06:00] LABS: BASO # 0.1 10^3/uL (0.0-0.2); BASO % 1.2 % (0.0-1.0); EOS # 0.6 10^3/uL (0.0-0.5); EOS % 5.4 % (0.0-3.0); HEMATOCRIT 43.7 % (36.0-47.0); LYMPH # 4.5 10^3/uL (1.5-5.0); LYMPH % 37.7 % (24.0-44.0); MEAN CORPUSCULAR HEMOGLOBIN 31.1 pg (27.0-33.0); MEAN CORPUSCULAR VOLUME 97.1 fl (80.0-96.0); MONO % 8.8 % (2.0-8.0); NEUTROPHILS # 5.5 10^3/uL (1.5-8.5); NEUTROPHILS % 46.6 % (36.0-66.0); PLATELET COUNT, AUTOMATED 331 10^3/uL (150-450); WHITE BLOOD COUNT 11.9 10^3/uL (4.0-10.0)
[2022-08-29 06:32] LABS: BLOOD UREA NITROGEN 27 MG/DL (9-23); CALCIUM LEVEL 9.8 MG/DL (8.3-10.6); CARBON DIOXIDE LEVEL 27 MMOL/L (20-31); CHLORIDE LEVEL 100 MMOL/L (98-107); CREATININE FOR GFR 0.91 MG/DL (0.55-1.30); GLOMERULAR FILTRATION RATE > 60.0 (>32); GLUCOSE, FASTING 110 MG/DL (74-106); POTASSIUM SERUM 4.5 MMOL/L (3.5-5.1); SODIUM LEVEL 134 MMOL/L (136-145)
[2022-08-29] MEDS: OCUVITE 1 TAB PO SCH (08:15)
[2022-08-29] MEDS: ASPIRIN 81MG ENTERIC TABLET PO SCH (08:15)
[2022-08-29] MEDS: DYAZIDE 37.5/25 CAP (TRIAM/HCTZ) PO SCH (08:15)
[2022-08-29] MEDS: VITAMIN D 1,000 INTERNATIONAL UNITS TABLET PO SCH (08:16)
[2022-08-29] MEDS: CEFDINIR 300 MG CAP (OMNICEF) PO SCH ×2 (08:16→21:37)
[2022-08-29] MEDS: LOSARTAN 50MG TABLET PO SCH (08:16)
[2022-08-29] MEDS: LORATADINE 10 MG TAB PO SCH (08:16)
[2022-08-29] MEDS: GABAPENTIN 100 MG CAP PO SCH (21:22)
[2022-08-29] MEDS: ATORVASTATIN 10 MG TAB PO SCH (21:22)
[2022-08-29] MEDS: rOPINIRole 1MG TAB PO SCH (21:23)
[2022-08-29] MEDS: ANALGESIC BALM CRM 3OZ TOP PRN (22:49)
[2022-08-30] MEDS ORDERED: PHENAZOPYRIDINE 100 MG TAB PO PRN (00:45)
[2022-08-30] MEDS ORDERED: TEMAZEPAM 7.5 MG CAP PO ONE (01:00)
[2022-08-30] MEDS: ACETAMINOPHEN TAB 650MG DOSE (2X325MG) PO PRN (01:29)
[2022-08-30] MEDS ORDERED: HYOSCYAMINE SULFATE 0.125 MG SUBL TABLET PO ONE (02:00)
[2022-08-30 04:45] VITALS: BP 132/68
[2022-08-30] MEDS: LEVOTHYROXINE 88MCG TABLET (0.088 MG) PO SCH (05:39)
[2022-08-30] MEDS: HEPARIN SOD (PORCINE) 5000UNITS/ML 1ML VIAL/SYRINGE SC SCH ×3 (05:39→21:32)
[2022-08-30 06:18] LABS: BASO # 0.2 10^3/uL (0.0-0.2); BASO % 1.4 % (0.0-1.0); EOS # 0.6 10^3/uL (0.0-0.5); EOS % 4.4 % (0.0-3.0); HEMATOCRIT 43.1 % (36.0-47.0); LYMPH # 3.6 10^3/uL (1.5-5.0); LYMPH % 29.4 % (24.0-44.0); MEAN CORPUSCULAR HEMOGLOBIN 31.1 pg (27.0-33.0); MEAN CORPUSCULAR HGB CONC 32.5 g/dl (32.0-36.5); MEAN CORPUSCULAR VOLUME 95.8 fl (80.0-96.0); NEUTROPHILS % 56.3 % (36.0-66.0); PLATELET COUNT, AUTOMATED 341 10^3/uL (150-450); WHITE BLOOD COUNT 12.4 10^3/uL (4.0-10.0)
[2022-08-30 06:34] LABS: CALCIUM LEVEL 9.8 MG/DL (8.3-10.6); CREATININE FOR GFR 0.98 MG/DL (0.55-1.30); POTASSIUM SERUM 4.7 MMOL/L (3.5-5.1)
[2022-08-30] MEDS: CEFDINIR 300 MG CAP (OMNICEF) PO SCH ×2 (08:29→21:32)
[2022-08-30] MEDS: ASPIRIN 81MG ENTERIC TABLET PO SCH (08:29)
[2022-08-30] MEDS: VITAMIN D 1,000 INTERNATIONAL UNITS TABLET PO SCH (08:29)
[2022-08-30] MEDS: LORATADINE 10 MG TAB PO SCH (08:29)
[2022-08-30] MEDS: OCUVITE 1 TAB PO SCH (08:29)
[2022-08-30] MEDS: ATORVASTATIN 10 MG TAB PO SCH (21:31)
[2022-08-30] MEDS: GABAPENTIN 100 MG CAP PO SCH (21:31)
[2022-08-30] MEDS: rOPINIRole 1MG TAB PO SCH (21:32)
[2022-08-30] MEDS: TEMAZEPAM 7.5 MG CAP PO PRN (21:32)
[2022-08-30] MEDS: HYOSCYAMINE SULFATE 0.125 MG SUBL TABLET PO PRN (21:32)
[2022-08-30] MEDS: ANALGESIC BALM CRM 3OZ TOP PRN (21:35)
[2022-08-31] MEDS: HEPARIN SOD (PORCINE) 5000UNITS/ML 1ML VIAL/SYRINGE SC SCH ×3 (05:30→21:22)
[2022-08-31] MEDS: LEVOTHYROXINE 88MCG TABLET (0.088 MG) PO SCH (05:30)
[2022-08-31 05:57] VITALS: BP 158/83
[2022-08-31 07:29] LABS: BASO # 0.1 10^3/uL (0.0-0.2); BASO % 1.2 % (0.0-1.0); EOS # 0.5 10^3/uL (0.0-0.5); EOS % 4.6 % (0.0-3.0); HEMATOCRIT 42.4 % (36.0-47.0); HEMOGLOBIN 13.8 g/dl (12.0-15.5); LYMPH # 3.9 10^3/uL (1.5-5.0); LYMPH % 34.9 % (24.0-44.0); MEAN CORPUSCULAR HEMOGLOBIN 30.9 pg (27.0-33.0); MEAN CORPUSCULAR HGB CONC 32.5 g/dl (32.0-36.5); MEAN CORPUSCULAR VOLUME 94.9 fl (80.0-96.0); MONO % 8.7 % (2.0-8.0); NEUTROPHILS # 5.6 10^3/uL (1.5-8.5); NEUTROPHILS % 50.2 % (36.0-66.0); PLATELET COUNT, AUTOMATED 350 10^3/uL (150-450); RED BLOOD COUNT 4.47 10^6/uL (4.00-5.40); WHITE BLOOD COUNT 11.2 10^3/uL (4.0-10.0)
[2022-08-31 07:47] LABS: BLOOD UREA NITROGEN 35 MG/DL (9-23); CALCIUM LEVEL 9.5 MG/DL (8.3-10.6); CARBON DIOXIDE LEVEL 21 MMOL/L (20-31); CHLORIDE LEVEL 102 MMOL/L (98-107); CREATININE FOR GFR 0.82 MG/DL (0.55-1.30); GLOMERULAR FILTRATION RATE > 60.0 (>32); GLUCOSE, FASTING 116 MG/DL (74-106); POTASSIUM SERUM 4.1 MMOL/L (3.5-5.1); SODIUM LEVEL 136 MMOL/L (136-145)
[2022-08-31] MEDS: ASPIRIN 81MG ENTERIC TABLET PO SCH (09:23)
[2022-08-31] MEDS: LORATADINE 10 MG TAB PO SCH (09:23)
[2022-08-31] MEDS: OCUVITE 1 TAB PO SCH (09:23)
[2022-08-31] MEDS: VITAMIN D 1,000 INTERNATIONAL UNITS TABLET PO SCH (09:23)
[2022-08-31] MEDS: HYOSCYAMINE SULFATE 0.125 MG SUBL TABLET PO PRN ×2 (09:25→21:22)
[2022-08-31] MEDS: GABAPENTIN 100 MG CAP PO SCH (21:22)
[2022-08-31] MEDS: rOPINIRole 1MG TAB PO SCH (21:22)
[2022-08-31] MEDS: ATORVASTATIN 10 MG TAB PO SCH (21:22)
[2022-08-31] MEDS: ANALGESIC BALM CRM 3OZ TOP PRN (21:23)
[2022-09-01] MEDS: TEMAZEPAM 7.5 MG CAP PO PRN ×2 (01:24→21:28)
[2022-09-01] MEDS: LEVOTHYROXINE 88MCG TABLET (0.088 MG) PO SCH (05:38)
[2022-09-01] MEDS: HEPARIN SOD (PORCINE) 5000UNITS/ML 1ML VIAL/SYRINGE SC SCH ×3 (05:38→21:28)
[2022-09-01 06:00] VITALS: BP 162/67
[2022-09-01] MEDS ORDERED: **hydrALAZINE** 10 MG TAB PO ONE (06:00)
[2022-09-01 06:23] LABS: BASO # 0.1 10^3/uL (0.0-0.2); EOS # 0.7 10^3/uL (0.0-0.5); EOS % 5.5 % (0.0-3.0); HEMATOCRIT 41.9 % (36.0-47.0); HEMOGLOBIN 13.6 g/dl (12.0-15.5); LYMPH # 4.5 10^3/uL (1.5-5.0); LYMPH % 36.3 % (24.0-44.0); MEAN CORPUSCULAR HEMOGLOBIN 31.1 pg (27.0-33.0); MEAN CORPUSCULAR HGB CONC 32.5 g/dl (32.0-36.5); MEAN CORPUSCULAR VOLUME 95.9 fl (80.0-96.0); MONO # 1.1 10^3/uL (0.0-0.8); MONO % 9.1 % (2.0-8.0); NEUTROPHILS # 5.8 10^3/uL (1.5-8.5); NEUTROPHILS % 47.6 % (36.0-66.0); PLATELET COUNT, AUTOMATED 303 10^3/uL (150-450); RED BLOOD COUNT 4.37 10^6/uL (4.00-5.40); WHITE BLOOD COUNT 12.3 10^3/uL (4.0-10.0)
[2022-09-01 06:46] LABS: BLOOD UREA NITROGEN 30 MG/DL (9-23); CALCIUM LEVEL 9.6 MG/DL (8.3-10.6); CARBON DIOXIDE LEVEL 26 MMOL/L (20-31); CHLORIDE LEVEL 102 MMOL/L (98-107); CREATININE FOR GFR 0.83 MG/DL (0.55-1.30); GLOMERULAR FILTRATION RATE > 60.0 (>32); GLUCOSE, FASTING 105 MG/DL (74-106); POTASSIUM SERUM 3.7 MMOL/L (3.5-5.1); SODIUM LEVEL 137 MMOL/L (136-145)
[2022-09-01 07:30] VITALS: BP 162/68
[2022-09-01] MEDS: HYOSCYAMINE SULFATE 0.125 MG SUBL TABLET PO PRN ×2 (08:49→21:28)
[2022-09-01] MEDS: LORATADINE 10 MG TAB PO SCH (08:50)
[2022-09-01] MEDS: OCUVITE 1 TAB PO SCH (08:50)
[2022-09-01] MEDS: VITAMIN D 1,000 INTERNATIONAL UNITS TABLET PO SCH (08:50)
[2022-09-01] MEDS: ASPIRIN 81MG ENTERIC TABLET PO SCH (08:50)
[2022-09-01 09:46] VITALS: BP 162/64
[2022-09-01] MEDS ORDERED: LOSARTAN 50MG TABLET PO ONE (09:50)
[2022-09-01] MEDS: rOPINIRole 1MG TAB PO SCH (21:28)
[2022-09-01] MEDS: ATORVASTATIN 10 MG TAB PO SCH (21:28)
[2022-09-01] MEDS: GABAPENTIN 100 MG CAP PO SCH (21:28)
[2022-09-01] MEDS: ANALGESIC BALM CRM 3OZ TOP PRN (21:43)
[2022-09-02 06:00] VITALS: BP 158/65
[2022-09-02] MEDS: HEPARIN SOD (PORCINE) 5000UNITS/ML 1ML VIAL/SYRINGE SC SCH ×3 (06:09→21:34)
[2022-09-02] MEDS: LEVOTHYROXINE 88MCG TABLET (0.088 MG) PO SCH (06:09)
[2022-09-02] MEDS: ASPIRIN 81MG ENTERIC TABLET PO SCH (09:02)
[2022-09-02] MEDS: OCUVITE 1 TAB PO SCH (09:02)
[2022-09-02] MEDS: VITAMIN D 1,000 INTERNATIONAL UNITS TABLET PO SCH (09:03)
[2022-09-02] MEDS: LOSARTAN 50MG TABLET PO SCH (09:03)
[2022-09-02] MEDS: LORATADINE 10 MG TAB PO SCH (09:04)
[2022-09-02 10:38] LABS: BASO # 0.1 10^3/uL (0.0-0.2); EOS # 0.5 10^3/uL (0.0-0.5); EOS % 4.8 % (0.0-3.0); HEMATOCRIT 40.8 % (36.0-47.0); HEMOGLOBIN 13.2 g/dl (12.0-15.5); LYMPH # 3.1 10^3/uL (1.5-5.0); LYMPH % 29.7 % (24.0-44.0); MEAN CORPUSCULAR HEMOGLOBIN 31.2 pg (27.0-33.0); MEAN CORPUSCULAR HGB CONC 32.4 g/dl (32.0-36.5); MEAN CORPUSCULAR VOLUME 96.5 fl (80.0-96.0); MONO # 0.8 10^3/uL (0.0-0.8); MONO % 7.3 % (2.0-8.0); NEUTROPHILS # 5.9 10^3/uL (1.5-8.5); NEUTROPHILS % 56.7 % (36.0-66.0); PLATELET COUNT, AUTOMATED 293 10^3/uL (150-450); RED BLOOD COUNT 4.23 10^6/uL (4.00-5.40); WHITE BLOOD COUNT 10.3 10^3/uL (4.0-10.0)
[2022-09-02 11:06] LABS: BLOOD UREA NITROGEN 31 MG/DL (9-23); CALCIUM LEVEL 9.4 MG/DL (8.3-10.6); CARBON DIOXIDE LEVEL 26 MMOL/L (20-31); CHLORIDE LEVEL 103 MMOL/L (98-107); CREATININE FOR GFR 0.92 MG/DL (0.55-1.30); GLOMERULAR FILTRATION RATE > 60.0 (>32); GLUCOSE, FASTING 143 MG/DL (74-106); POTASSIUM SERUM 3.7 MMOL/L (3.5-5.1); SODIUM LEVEL 138 MMOL/L (136-145)
[2022-09-02] MEDS: TEMAZEPAM 7.5 MG CAP PO PRN (21:34)
[2022-09-02] MEDS: rOPINIRole 1MG TAB PO SCH (21:34)
[2022-09-02] MEDS: GABAPENTIN 100 MG CAP PO SCH (21:34)
[2022-09-02] MEDS: ATORVASTATIN 10 MG TAB PO SCH (21:34)
[2022-09-03] MEDS: HEPARIN SOD (PORCINE) 5000UNITS/ML 1ML VIAL/SYRINGE SC SCH ×3 (05:30→21:08)
[2022-09-03] MEDS: LEVOTHYROXINE 88MCG TABLET (0.088 MG) PO SCH (05:30)
[2022-09-03 06:00] VITALS: BP 149/64
[2022-09-03 06:11] LABS: BASO # 0.2 10^3/uL (0.0-0.2); BASO % 1.3 % (0.0-1.0); EOS # 0.7 10^3/uL (0.0-0.5); HEMATOCRIT 39.7 % (36.0-47.0); HEMOGLOBIN 12.9 g/dl (12.0-15.5); LYMPH # 3.8 10^3/uL (1.5-5.0); LYMPH % 33.7 % (24.0-44.0); MEAN CORPUSCULAR HEMOGLOBIN 31.1 pg (27.0-33.0); MEAN CORPUSCULAR HGB CONC 32.5 g/dl (32.0-36.5); MEAN CORPUSCULAR VOLUME 95.7 fl (80.0-96.0); MONO # 1.1 10^3/uL (0.0-0.8); MONO % 9.5 % (2.0-8.0); NEUTROPHILS # 5.5 10^3/uL (1.5-8.5); NEUTROPHILS % 49.1 % (36.0-66.0); PLATELET COUNT, AUTOMATED 287 10^3/uL (150-450); RED BLOOD COUNT 4.15 10^6/uL (4.00-5.40); WHITE BLOOD COUNT 11.1 10^3/uL (4.0-10.0)
[2022-09-03 06:39] LABS: BLOOD UREA NITROGEN 31 MG/DL (9-23); CALCIUM LEVEL 9.1 MG/DL (8.3-10.6); CARBON DIOXIDE LEVEL 26 MMOL/L (20-31); CHLORIDE LEVEL 104 MMOL/L (98-107); CREATININE FOR GFR 0.87 MG/DL (0.55-1.30); GLOMERULAR FILTRATION RATE > 60.0 (>32); GLUCOSE, FASTING 105 MG/DL (74-106); POTASSIUM SERUM 4.3 MMOL/L (3.5-5.1); SODIUM LEVEL 138 MMOL/L (136-145)
[2022-09-03] MEDS: LOSARTAN 50MG TABLET PO SCH (08:44)
[2022-09-03] MEDS: OCUVITE 1 TAB PO SCH (08:44)
[2022-09-03] MEDS: ASPIRIN 81MG ENTERIC TABLET PO SCH (08:44)
[2022-09-03] MEDS: VITAMIN D 1,000 INTERNATIONAL UNITS TABLET PO SCH (08:44)
[2022-09-03] MEDS: LORATADINE 10 MG TAB PO SCH (08:44)
[2022-09-03] MEDS: ACETAMINOPHEN TAB 650MG DOSE (2X325MG) PO PRN (15:09)
[2022-09-03] MEDS: ATORVASTATIN 10 MG TAB PO SCH (21:07)
[2022-09-03] MEDS: GABAPENTIN 100 MG CAP PO SCH (21:07)
[2022-09-03] MEDS: TEMAZEPAM 7.5 MG CAP PO PRN (21:07)
[2022-09-03] MEDS: rOPINIRole 1MG TAB PO SCH (21:07)
[2022-09-04 04:45] VITALS: BP 163/64
[2022-09-04] MEDS: ACETAMINOPHEN TAB 650MG DOSE (2X325MG) PO PRN (06:02)
[2022-09-04] MEDS: LEVOTHYROXINE 88MCG TABLET (0.088 MG) PO SCH (06:10)
[2022-09-04] MEDS: HEPARIN SOD (PORCINE) 5000UNITS/ML 1ML VIAL/SYRINGE SC SCH (06:11)
[2022-09-04 06:37] LABS: BASO # 0.1 10^3/uL (0.0-0.2); BASO % 1.1 % (0.0-1.0); EOS # 0.7 10^3/uL (0.0-0.5); EOS % 6.2 % (0.0-3.0); HEMATOCRIT 38.4 % (36.0-47.0); HEMOGLOBIN 12.4 g/dl (12.0-15.5); LYMPH # 3.6 10^3/uL (1.5-5.0); LYMPH % 34.2 % (24.0-44.0); MEAN CORPUSCULAR HGB CONC 32.3 g/dl (32.0-36.5); MONO % 9.5 % (2.0-8.0); NEUTROPHILS # 5.1 10^3/uL (1.5-8.5); NEUTROPHILS % 48.5 % (36.0-66.0); PLATELET COUNT, AUTOMATED 294 10^3/uL (150-450); WHITE BLOOD COUNT 10.6 10^3/uL (4.0-10.0)
[2022-09-04 07:13] LABS: BLOOD UREA NITROGEN 23 MG/DL (9-23); CARBON DIOXIDE LEVEL 26 MMOL/L (20-31); CHLORIDE LEVEL 101 MMOL/L (98-107); GLOMERULAR FILTRATION RATE > 60.0 (>32); GLUCOSE, FASTING 112 MG/DL (74-106); POTASSIUM SERUM 4.4 MMOL/L (3.5-5.1); SODIUM LEVEL 137 MMOL/L (136-145)
[2022-09-04] MEDS: VITAMIN D 1,000 INTERNATIONAL UNITS TABLET PO SCH (08:41)
[2022-09-04] MEDS: LORATADINE 10 MG TAB PO SCH (08:41)
[2022-09-04] MEDS: OCUVITE 1 TAB PO SCH (08:41)
[2022-09-04 08:42] VITALS: BP 164/63
[2022-09-04] MEDS: LOSARTAN 50MG TABLET PO SCH (08:42)
[2022-09-04] MEDS: ASPIRIN 81MG ENTERIC TABLET PO SCH (09:00)
[2022-09-04] MEDS ORDERED: ATOR1TAB19 PO (11:14)
== END 2022-09-04 12:42 | disposition home health service (06) | DRG 57 ==
LOC: M ED 08:13 → EDBD 08:13 → M ED INP 08:14 → ENRESERV 08-27 11:15 → M MSPAV 08-27 13:40 → OBSVTOIN 08-28 09:09
PROVIDERS: ADMIT Internal Medicine; ATTEND Student in an Organized Health Care Education/Training Program
DX: I69.254 Hemiplegia and hemiparesis following other nontraumatic intracranial hemorrhage affecting left non-dominant side (principal); N30.00 Acute cystitis without hematuria; I16.0 Hypertensive urgency; I12.9 Hypertensive chronic kidney disease with stage 1 through stage 4 chronic kidney disease, or unspecified chronic kidney disease; R73.03 Prediabetes; E78.5 Hyperlipidemia, unspecified; E03.9 Hypothyroidism, unspecified; N18.31 Chronic kidney disease, stage 3a; E55.9 Vitamin D deficiency, unspecified; G89.29 Other chronic pain; I27.20 Pulmonary hypertension, unspecified; G62.9 Polyneuropathy, unspecified; I67.2 Cerebral atherosclerosis; J30.9 Allergic rhinitis, unspecified; G25.81 Restless legs syndrome; Z98.49 Cataract extraction status, unspecified eye; Z79.82 Long term (current) use of aspirin; Z79.890 Hormone replacement therapy; Z79.899 Other long term (current) drug therapy; Z88.2 Allergy status to sulfonamides; Z88.5 Allergy status to narcotic agent; Z88.8 Allergy status to other drugs, medicaments and biological substances

== ENCOUNTER → 2022-09-13 | Outpatient (REF) | payer MEDICARE ==
[~2022-09-13] MED LIST changes: +ASPI81TA26 PO; +ATOR1TAB19 PO; +CEPH500C PO; +GABA-1171 PO; +LORA-753 PO; +ROPI1TAB86 PO; +SYNT88TA2 PO; +VITA100093 PO
[2022-09-13 18:20] LABS: BASO # 0.1 10^3/uL (0.0-0.2); EOS # 0.5 10^3/uL (0.0-0.5); EOS % 3.7 % (0.0-3.0); HEMATOCRIT 43.7 % (36.0-47.0); HEMOGLOBIN 13.9 g/dl (12.0-15.5); LYMPH # 3.1 10^3/uL (1.5-5.0); LYMPH % 24.4 % (24.0-44.0); MEAN CORPUSCULAR HEMOGLOBIN 30.9 pg (27.0-33.0); MEAN CORPUSCULAR HGB CONC 31.8 g/dl (32.0-36.5); MEAN CORPUSCULAR VOLUME 97.1 fl (80.0-96.0); MONO % 7.8 % (2.0-8.0); NEUTROPHILS # 7.9 10^3/uL (1.5-8.5); NEUTROPHILS % 62.7 % (36.0-66.0); PLATELET COUNT, AUTOMATED 276 10^3/uL (150-450); WHITE BLOOD COUNT 12.5 10^3/uL (4.0-10.0)
[2022-09-13 18:34] LABS: HEMOGLOBIN A1c 6.2 % (4.0-6.0)
[2022-09-13 18:43] LABS: BLOOD UREA NITROGEN 24 MG/DL (9-23); CARBON DIOXIDE LEVEL 28 MMOL/L (20-31); CHLORIDE LEVEL 101 MMOL/L (98-107); GLOMERULAR FILTRATION RATE > 60.0 (>32); GLUCOSE, FASTING 120 MG/DL (74-106); SODIUM LEVEL 138 MMOL/L (136-145)
== END ==
LOC: M SFHCADAM 14:19
PROVIDERS: ATTEND Physician Assistant
DX: I69.30 Unspecified sequelae of cerebral infarction (principal); I10 Essential (primary) hypertension; N18.31 Chronic kidney disease, stage 3a; E78.5 Hyperlipidemia, unspecified; E11.42 Type 2 diabetes mellitus with diabetic polyneuropathy; D72.829 Elevated white blood cell count, unspecified

== ENCOUNTER → 2022-09-19 | Outpatient (CLI) | payer MEDICARE | LOC: M ADAMS 12:10 | PROVIDERS: ATTEND Family Medicine | DX: M51.06 Intervertebral disc disorders with myelopathy, lumbar region (principal) ==

== ENCOUNTER → 2022-10-17 | Outpatient (CLI) | payer MEDICARE | LOC: M PLAIMG 13:11 | PROVIDERS: ATTEND Family Medicine | DX: M51.06 Intervertebral disc disorders with myelopathy, lumbar region (principal) ==

== ENCOUNTER → 2022-12-18 | Outpatient (REF) | payer MEDICARE ==
[2022-12-18 17:33] LABS: HEMATOCRIT 41.6 % (36.0-47.0); HEMOGLOBIN 13.3 g/dl (12.0-15.5); MEAN CORPUSCULAR HEMOGLOBIN 31.3 pg (27.0-33.0); MEAN CORPUSCULAR VOLUME 97.9 fl (80.0-96.0); PLATELET COUNT, AUTOMATED 268 10^3/uL (150-450); RED BLOOD COUNT 4.25 10^6/uL (4.00-5.40); WHITE BLOOD COUNT 12.3 10^3/uL (4.0-10.0)
[2022-12-18 17:49] LABS: FREE T4 1.21 NG/DL (0.89-1.76)
[2022-12-18 18:07] LABS: ALBUMIN 3.8 G/DL (3.2-5.2); ALKALINE PHOSPHATASE 88 U/L (46-116); ALT/SGPT 22 U/L (7.0-40); AST/SGOT 34 U/L (<34); BILIRUBIN,TOTAL 0.3 MG/DL (0.3-1.2); BLOOD UREA NITROGEN 25 MG/DL (9-23); CALCIUM LEVEL 9.4 MG/DL (8.3-10.6); CARBON DIOXIDE LEVEL 27 MMOL/L (20-31); CHLORIDE LEVEL 101 MMOL/L (98-107); CHOLESTEROL LEVEL 248 MG/DL (<200); CHOLESTEROL RISK RATIO 5.02 (<5); CREATININE FOR GFR 0.81 MG/DL (0.55-1.30); GLOMERULAR FILTRATION RATE > 60.0 (>32); GLUCOSE, FASTING 95 MG/DL (74-106); HDL CHOLESTEROL 49.4 MG/DL (>40); LDL CHOLESTEROL 145.6 MG/DL (<100); NON-HDL-C 198.6 MG/DL; POTASSIUM SERUM 4.4 MMOL/L (3.5-5.1); SODIUM LEVEL 137 MMOL/L (136-145); TOTAL PROTEIN 7.2 G/DL (5.7-8.2); TRIGLYCERIDES LEVEL 265 MG/DL (<150)
[2022-12-18 19:11] LABS: HEMOGLOBIN A1c 6.4 % (4.0-6.0)
== END ==
LOC: M SFHCADAM 11:52
PROVIDERS: ATTEND Family Medicine
DX: N18.31 Chronic kidney disease, stage 3a (principal); E11.9 Type 2 diabetes mellitus without complications; E78.5 Hyperlipidemia, unspecified; E03.9 Hypothyroidism, unspecified

== ENCOUNTER → 2023-01-24 | Outpatient (REF) | payer MEDICARE ==
[~2023-01-24] MED LIST changes: -LOSA100T45 PO; +LOSA100T46 PO
== END ==
LOC: M SFHCADAM 15:52
PROVIDERS: ATTEND Physician Assistant
DX: N30.01 Acute cystitis with hematuria (principal)

== ENCOUNTER → 2023-04-30 | Outpatient (CLI) | payer MEDICARE | LOC: M ADAMS 11:31 | PROVIDERS: ATTEND Family Medicine | DX: R60.0 Localized edema (principal); R05.2 Subacute cough ==

== ENCOUNTER → 2023-04-30 | Outpatient (REF) | payer MEDICARE ==
[2023-04-30 13:20] LABS: BLOOD UREA NITROGEN 24 MG/DL (9-23); CALCIUM LEVEL 9.4 MG/DL (8.3-10.6); CARBON DIOXIDE LEVEL 31 MMOL/L (20-31); CHLORIDE LEVEL 100 MMOL/L (98-107); CREATININE FOR GFR 0.81 MG/DL (0.55-1.30); GLOMERULAR FILTRATION RATE > 60.0 (>32); GLUCOSE, FASTING 110 MG/DL (74-106); POTASSIUM SERUM 3.7 MMOL/L (3.5-5.1); SODIUM LEVEL 140 MMOL/L (136-145)
== END ==
LOC: M SFHCADAM 11:20
PROVIDERS: ATTEND Family Medicine
DX: R60.0 Localized edema (principal); R05.2 Subacute cough

== ENCOUNTER → 2023-05-02 | Outpatient (REF) | payer MEDICARE | LOC: M SFHCADAM 12:29 | PROVIDERS: ATTEND Physician Assistant | DX: R30.0 Dysuria (principal) ==

== ENCOUNTER → 2023-05-29 | Outpatient (REF) | payer MEDICARE ==
[2023-05-29 15:11] LABS: HEMATOCRIT 43.4 % (36.0-47.0); HEMOGLOBIN 14.3 g/dl (12.0-15.5); MEAN CORPUSCULAR HGB CONC 32.9 g/dl (32.0-36.5); MEAN CORPUSCULAR VOLUME 94.1 fl (80.0-96.0); PLATELET COUNT, AUTOMATED 322 10^3/uL (150-450); RED BLOOD COUNT 4.61 10^6/uL (4.00-5.40); WHITE BLOOD COUNT 13.1 10^3/uL (4.0-10.0)
[2023-05-29 15:48] LABS: THYROID STIMULATING HORMONE 3.665 uIU/ML (0.55-4.78)
[2023-05-29 15:52] LABS: FREE T4 1.22 NG/DL (0.89-1.76)
[2023-05-29 15:54] LABS: BILIRUBIN,TOTAL 0.5 MG/DL (0.3-1.2); CALCIUM LEVEL 9.3 MG/DL (8.3-10.6); CHOLESTEROL RISK RATIO 5.86 (<5); CREATININE FOR GFR 1.34 MG/DL (0.55-1.30); GLOMERULAR FILTRATION RATE 40.3 (>32); HDL CHOLESTEROL 39.4 MG/DL (>40); LDL CHOLESTEROL 132.6 MG/DL (<100); MAGNESIUM LEVEL 1.4 MG/DL (1.8-2.4); NON-HDL-C 191.6 MG/DL; POTASSIUM SERUM 3.2 MMOL/L (3.5-5.1); TOTAL PROTEIN 7.4 G/DL (5.7-8.2)
== END ==
LOC: M SFHCADAM 11:48
PROVIDERS: ATTEND Physician Assistant
DX: N18.31 Chronic kidney disease, stage 3a (principal); R60.0 Localized edema; E78.5 Hyperlipidemia, unspecified; E11.42 Type 2 diabetes mellitus with diabetic polyneuropathy; G47.20 Circadian rhythm sleep disorder, unspecified type; E03.9 Hypothyroidism, unspecified

== ENCOUNTER → 2023-06-07 | Outpatient (REF) | payer MEDICARE | LOC: M SFHCADAM 11:34 | PROVIDERS: ATTEND Physician Assistant | DX: Z53.9 Procedure and treatment not carried out, unspecified reason (principal) ==

== ENCOUNTER → 2023-07-11 | Outpatient (REF) | payer MEDICARE ==
[2023-07-11 17:03] LABS: BLOOD UREA NITROGEN 29 MG/DL (9-23); CARBON DIOXIDE LEVEL 31 MMOL/L (20-31); CHLORIDE LEVEL 102 MMOL/L (98-107); CREATININE FOR GFR 0.82 MG/DL (0.55-1.30); GLOMERULAR FILTRATION RATE > 60.0 (>32); GLUCOSE, FASTING 101 MG/DL (74-106); POTASSIUM SERUM 3.8 MMOL/L (3.5-5.1); SODIUM LEVEL 143 MMOL/L (136-145)
== END ==
LOC: M SFHCADAM 14:48
PROVIDERS: ATTEND Physician Assistant
DX: N18.31 Chronic kidney disease, stage 3a (principal); E87.6 Hypokalemia; E83.42 Hypomagnesemia

== ENCOUNTER → 2023-11-13 | Outpatient (REF) | payer MEDICARE | LOC: M SFHCADAM 12:42 | PROVIDERS: ATTEND Physician Assistant | DX: R30.0 Dysuria (principal) ==

== ENCOUNTER → 2023-12-06 | Outpatient (REF) | payer MEDICARE ==
[2023-12-06 14:59] LABS: HEMOGLOBIN A1c 6.4 % (4.0-6.0)
[2023-12-06 15:16] LABS: BLOOD UREA NITROGEN 28 MG/DL (9-23); CALCIUM LEVEL 9.7 MG/DL (8.3-10.6); CARBON DIOXIDE LEVEL 28 MMOL/L (20-31); CHLORIDE LEVEL 103 MMOL/L (98-107); CREATININE FOR GFR 0.69 MG/DL (0.55-1.30); GLOMERULAR FILTRATION RATE > 60.0 (>32); GLUCOSE, FASTING 111 MG/DL (74-106); POTASSIUM SERUM 4.4 MMOL/L (3.5-5.1); SODIUM LEVEL 135 MMOL/L (136-145)
[2023-12-06 15:18] LABS: THYROID STIMULATING HORMONE 2.852 uIU/ML (0.55-4.78)
[2023-12-06 15:19] LABS: FREE T4 1.21 NG/DL (0.89-1.76)
== END ==
LOC: M SFHCADAM 11:50
PROVIDERS: ATTEND Physician Assistant
DX: E11.9 Type 2 diabetes mellitus without complications (principal); E03.9 Hypothyroidism, unspecified

== ENCOUNTER → 2023-12-20 | Outpatient (REF) | payer MEDICARE | LOC: M SFHCADAM 17:03 | PROVIDERS: ATTEND Physician Assistant | DX: R53.83 Other fatigue (principal) ==

== ENCOUNTER → 2024-01-17 | Outpatient (REF) | payer MEDICARE | LOC: M SFHCADAM 16:48 | PROVIDERS: ATTEND Physician Assistant | DX: N39.0 Urinary tract infection, site not specified (principal) ==

== ENCOUNTER → 2024-03-11 | Outpatient (REF) | payer MEDICARE ==
[~2024-03-11] MED LIST changes: +ROPI1TA PO; -ROPI1TAB86 PO
[2024-03-11 18:58] LABS: ALBUMIN 3.7 G/DL (3.2-5.2); ALKALINE PHOSPHATASE 79 U/L (46-116); ALT/SGPT 19 U/L (7.0-40); AST/SGOT 19 U/L (<34); BILIRUBIN,TOTAL 0.5 MG/DL (0.3-1.2); BLOOD UREA NITROGEN 27 MG/DL (9-23); CALCIUM LEVEL 9.5 MG/DL (8.3-10.6); CARBON DIOXIDE LEVEL 27 MMOL/L (20-31); CHLORIDE LEVEL 101 MMOL/L (98-107); CHOLESTEROL LEVEL 253 MG/DL (<200); CHOLESTEROL RISK RATIO 5.76 (<5); CREATININE FOR GFR 0.76 MG/DL (0.55-1.30); FREE T4 1.07 NG/DL (0.89-1.76); GLOMERULAR FILTRATION RATE > 60.0 (>32); GLUCOSE, FASTING 160 MG/DL (74-106); HDL CHOLESTEROL 43.9 MG/DL (>40); LDL CHOLESTEROL 152.9 MG/DL (<100); MAGNESIUM LEVEL 1.6 MG/DL (1.8-2.4); NON-HDL-C 209.1 MG/DL; POTASSIUM SERUM 4.4 MMOL/L (3.5-5.1); SODIUM LEVEL 135 MMOL/L (136-145); TOTAL PROTEIN 6.7 G/DL (5.7-8.2); TRIGLYCERIDES LEVEL 281 MG/DL (<150)
[2024-03-11 18:59] LABS: FERRITIN 72.4 NG/ML (7.3-270.7); THYROID STIMULATING HORMONE 2.678 uIU/ML (0.55-4.78)
[2024-03-11 19:09] LABS: BASO # 0.1 10^3/uL (0.0-0.2); EOS # 0.2 10^3/uL (0.0-0.5); EOS % 2.5 % (0.0-3.0); HEMATOCRIT 41.2 % (36.0-47.0); HEMOGLOBIN 13.3 g/dl (12.0-15.5); LYMPH # 3.5 10^3/uL (1.5-5.0); LYMPH % 37.8 % (24.0-44.0); MEAN CORPUSCULAR HEMOGLOBIN 31.7 pg (27.0-33.0); MEAN CORPUSCULAR HGB CONC 32.3 g/dl (32.0-36.5); MEAN CORPUSCULAR VOLUME 98.1 fl (80.0-96.0); MONO # 0.9 10^3/uL (0.0-0.8); MONO % 9.6 % (2.0-8.0); NEUTROPHILS # 4.5 10^3/uL (1.5-8.5); NEUTROPHILS % 48.8 % (36.0-66.0); PLATELET COUNT, AUTOMATED 278 10^3/uL (150-450); WHITE BLOOD COUNT 9.3 10^3/uL (4.0-10.0)
[2024-03-11 19:23] LABS: HEMOGLOBIN A1c 6.4 % (4.0-6.0)
== END ==
LOC: M SFHCADAM 11:34
PROVIDERS: ATTEND Family Medicine
DX: E03.9 Hypothyroidism, unspecified (principal); I10 Essential (primary) hypertension; G25.81 Restless legs syndrome; D72.829 Elevated white blood cell count, unspecified; E11.42 Type 2 diabetes mellitus with diabetic polyneuropathy

== ENCOUNTER → 2024-06-12 | Outpatient (REF) | payer MEDICARE | LOC: M SFHCADAM 16:58 | PROVIDERS: ATTEND Physician Assistant | DX: N39.0 Urinary tract infection, site not specified (principal) ==

== ENCOUNTER → 2024-07-01 | Outpatient (REF) | payer MEDICARE ==
[2024-07-01 18:20] LABS: BASO # 0.1 10^3/uL (0.0-0.2); BASO % 0.9 % (0.0-1.0); EOS # 0.3 10^3/uL (0.0-0.5); EOS % 2.8 % (0.0-3.0); HEMOGLOBIN 13.3 g/dl (12.0-15.5); LYMPH # 3.6 10^3/uL (1.5-5.0); LYMPH % 36.1 % (24.0-44.0); MEAN CORPUSCULAR HEMOGLOBIN 31.6 pg (27.0-33.0); MEAN CORPUSCULAR HGB CONC 32.4 g/dl (32.0-36.5); MEAN CORPUSCULAR VOLUME 97.4 fl (80.0-96.0); MONO # 1.1 10^3/uL (0.0-0.8); MONO % 10.7 % (2.0-8.0); NEUTROPHILS # 4.9 10^3/uL (1.5-8.5); NEUTROPHILS % 49.1 % (36.0-66.0); PLATELET COUNT, AUTOMATED 273 10^3/uL (150-450); RED BLOOD COUNT 4.21 10^6/uL (4.00-5.40)
[2024-07-01 18:30] LABS: HEMOGLOBIN A1c 6.3 % (4.0-6.0)
[2024-07-01 18:43] LABS: BLOOD UREA NITROGEN 33 MG/DL (9-23); CALCIUM LEVEL 10.3 MG/DL (8.3-10.6); CARBON DIOXIDE LEVEL 28 MMOL/L (20-31); CHLORIDE LEVEL 104 MMOL/L (98-107); CREATININE FOR GFR 0.73 MG/DL (0.55-1.30); GLOMERULAR FILTRATION RATE > 60.0 (>32); GLUCOSE, FASTING 121 MG/DL (74-106); MAGNESIUM LEVEL 1.8 MG/DL (1.8-2.4); POTASSIUM SERUM 4.7 MMOL/L (3.5-5.1); SODIUM LEVEL 137 MMOL/L (136-145)
[2024-07-01 18:44] LABS: THYROID STIMULATING HORMONE 2.158 uIU/ML (0.55-4.78)
[2024-07-01 18:45] LABS: FREE T4 1.77 NG/DL (0.89-1.76)
== END ==
LOC: M SFHCADAM 12:15
PROVIDERS: ATTEND Physician Assistant
DX: N39.0 Urinary tract infection, site not specified (principal); E03.9 Hypothyroidism, unspecified; E11.9 Type 2 diabetes mellitus without complications; E83.42 Hypomagnesemia; N18.31 Chronic kidney disease, stage 3a

== ENCOUNTER → 2024-11-11 | Outpatient (REF) | payer MEDICARE ==
[2024-11-11 18:20] LABS: HEMATOCRIT 46.4 % (36.0-47.0); HEMOGLOBIN 14.7 g/dl (12.0-15.5); MEAN CORPUSCULAR HEMOGLOBIN 30.9 pg (27.0-33.0); MEAN CORPUSCULAR HGB CONC 31.7 g/dl (32.0-36.5); MEAN CORPUSCULAR VOLUME 97.7 fl (80.0-96.0); PLATELET COUNT, AUTOMATED 305 10^3/uL (150-450); RED BLOOD COUNT 4.75 10^6/uL (4.00-5.40); WHITE BLOOD COUNT 11.9 10^3/uL (4.0-10.0)
[2024-11-11 18:48] LABS: FERRITIN 99.2 NG/ML (7.3-270.7); FREE T4 1.49 NG/DL (0.89-1.76); HEMOGLOBIN A1c 6.5 % (4.0-6.0); THYROID STIMULATING HORMONE 2.079 uIU/ML (0.55-4.78)
[2024-11-11 18:49] LABS: ALBUMIN 4.2 G/DL (3.2-5.2); ALKALINE PHOSPHATASE 88 U/L (35-104); ALT/SGPT 19 U/L (7.0-40); AST/SGOT 21 U/L (<34); BILIRUBIN,TOTAL 0.5 MG/DL (0.3-1.2); BLOOD UREA NITROGEN 30 MG/DL (9-23); CALCIUM LEVEL 10.2 MG/DL (8.3-10.6); CARBON DIOXIDE LEVEL 27 MMOL/L (20-31); CHLORIDE LEVEL 105 MMOL/L (98-107); CHOLESTEROL LEVEL 277 MG/DL (<200); CHOLESTEROL RISK RATIO 4.67 (<5); CREATININE FOR GFR 0.86 MG/DL (0.55-1.30); GLOMERULAR FILTRATION RATE > 60.0 (>32); GLUCOSE, FASTING 85 MG/DL (74-106); HDL CHOLESTEROL 59.3 MG/DL (>40); LDL CHOLESTEROL 171.3 MG/DL (<100); NON-HDL-C 217.7 MG/DL; POTASSIUM SERUM 4.4 MMOL/L (3.5-5.1); SODIUM LEVEL 142 MMOL/L (136-145); TRIGLYCERIDES LEVEL 232 MG/DL (<150)
[2024-11-11 18:51] LABS: FOLATE 11.43 NG/ML (>5.4)
[2024-11-11 18:52] LABS: VITAMIN B12 LEVEL 357 PG/ML (211-911)
== END ==
LOC: M SFHCADAM 15:02
PROVIDERS: ATTEND Family Medicine
DX: E03.9 Hypothyroidism, unspecified (principal); I10 Essential (primary) hypertension; G25.81 Restless legs syndrome; E11.42 Type 2 diabetes mellitus with diabetic polyneuropathy; F32.2 Major depressive disorder, single episode, severe without psychotic features; E78.5 Hyperlipidemia, unspecified

== ENCOUNTER → 2024-11-24 | Outpatient (CLI) | payer MEDICARE ==
[2024-11-24 12:44] LABS: BLOOD UREA NITROGEN 23 MG/DL (9-23)
[2024-11-24 12:46] LABS: C REACTIVE PROTEIN QUANTITATIV < 0.50 MG/DL (<1.0)
[2024-12-01 11:25] LABS: CREATININE FOR GFR 0.72 MG/DL (0.55-1.30); GLOMERULAR FILTRATION RATE > 60.0 (>32)
== END ==
LOC: M LAB 10:53
PROVIDERS: ATTEND Neurological Surgery
DX: Z79.82 Long term (current) use of aspirin (principal)

== ENCOUNTER → 2024-12-17 | Outpatient (REF) | payer MEDICARE | LOC: M SFHCADAM 13:00 | PROVIDERS: ATTEND Family Medicine | DX: R39.9 Unspecified symptoms and signs involving the genitourinary system (principal) ==

== ENCOUNTER → 2025-01-19 | Outpatient (REF) | payer MEDICARE ==
[2025-01-19 18:32] LABS: APPEARANCE, URINE HAZY (CLEAR); BACTERIA, URINE AUTO NEGATIVE (NEGATIVE); BILIRUBIN, URINE AUTO NEGATIVE (NEGATIVE); BLOOD, URINE BLOOD NEGATIVE (NEGATIVE); COLOR, URINE YELLOW (YELLOW); GLUCOSE, URINE (UA) AUTO NEGATIVE (NEGATIVE); KETONE, URINE AUTO NEGATIVE (NEGATIVE); LEUKOCYTE ESTERASE, URINE AUTO NEGATIVE (NEGATIVE); MUCUS, URINE SMALL (NEGATIVE); NITRITE, URINE AUTO POSITIVE (NEGATIVE); PROTEIN, URINE AUTO NEGATIVE (NEGATIVE); RBC, URINE AUTO 0 /HPF (0-3); SQUAMOUS EPITHELIAL CELL UR AU 4 /HPF (0-6); UROBILINOGEN, URINE AUTO 0.2 mg/dL (0.0-2.0); WBC, URINE AUTO 1 /HPF (0-3)
== END ==
LOC: M SFHCADAM 14:06
PROVIDERS: ATTEND Family Medicine
DX: I35.9 Nonrheumatic aortic valve disorder, unspecified (principal)

== ENCOUNTER → 2025-04-07 | Outpatient (CLI) | payer MEDICARE | LOC: M CARPUL 15:08 | PROVIDERS: ATTEND Family Medicine | DX: I35.0 Nonrheumatic aortic (valve) stenosis (principal); I08.0 Rheumatic disorders of both mitral and aortic valves ==

== ENCOUNTER → 2025-04-21 | Outpatient (CLI) | payer MEDICARE ==
[2025-04-21 13:52] LABS: BASO # 0.1 10^3/uL (0.0-0.2); BASO % 1.3 % (0.0-1.0); EOS # 0.2 10^3/uL (0.0-0.5); EOS % 1.9 % (0.0-3.0); LYMPH # 3.2 10^3/uL (1.5-5.0); LYMPH % 37.7 % (24.0-44.0); MONO # 1.1 10^3/uL (0.0-0.8); MONO % 12.7 % (2.0-8.0); NEUTROPHILS # 3.9 10^3/uL (1.5-8.5); NEUTROPHILS % 45.9 % (36.0-66.0); PLATELET COUNT, AUTOMATED 263 10^3/uL (150-450)
[2025-04-21 14:20] LABS: ESTIMATED AVERAGE GLUCOSE 137.0 MG/DL (60-110)
[2025-04-21 14:21] LABS: ALT/SGPT 17.0 U/L (7.0-40); AST/SGOT 24.0 U/L (<34); CALCIUM LEVEL 9.5 MG/DL (8.3-10.6); CARBON DIOXIDE LEVEL 24.0 MMOL/L (20-31); CHLORIDE LEVEL 103.0 MMOL/L (98-107); CHOLESTEROL LEVEL 263.0 MG/DL (<200); CHOLESTEROL RISK RATIO 5.58 (<5); CREATININE FOR GFR 0.83 MG/DL (0.55-1.30); GLOMERULAR FILTRATION RATE 69.5 (>32); LDL CHOLESTEROL 161.5 MG/DL (<100); NON-HDL-C 215.9 MG/DL; POTASSIUM SERUM 4.2 MMOL/L (3.5-5.1); SODIUM LEVEL 141.0 MMOL/L (136-145); TRIGLYCERIDES LEVEL 272.0 MG/DL (<150)
[2025-04-21 14:23] LABS: FREE T4 1.42 NG/DL (0.89-1.76)
== END ==
LOC: M LAB 11:46
PROVIDERS: ATTEND Family Medicine
DX: E11.9 Type 2 diabetes mellitus without complications (principal); E78.5 Hyperlipidemia, unspecified; D72.829 Elevated white blood cell count, unspecified; N18.31 Chronic kidney disease, stage 3a; E03.9 Hypothyroidism, unspecified

== ENCOUNTER → 2025-07-23 | Outpatient (CLI) | payer MEDICARE ==
[2025-07-23 12:51] LABS: ALT/SGPT 25.0 U/L (7.0-40); AST/SGOT 25.0 U/L (<34); CALCIUM LEVEL 9.7 MG/DL (8.3-10.6); CARBON DIOXIDE LEVEL 27.0 MMOL/L (20-31); CHLORIDE LEVEL 103.0 MMOL/L (98-107); CHOLESTEROL LEVEL 304.0 MG/DL (<200); CHOLESTEROL RISK RATIO 5.94 (<5); CREATININE FOR GFR 0.82 MG/DL (0.55-1.30); GLOMERULAR FILTRATION RATE 70.5 (>32); LDL CHOLESTEROL 203.1 MG/DL (<100); NON-HDL-C 252.9 MG/DL; POTASSIUM SERUM 4.4 MMOL/L (3.5-5.1); SODIUM LEVEL 140.0 MMOL/L (136-145); TRIGLYCERIDES LEVEL 249.0 MG/DL (<150)
[2025-07-23 13:20] LABS: ESTIMATED AVERAGE GLUCOSE 160.0 MG/DL (60-110)
== END ==
LOC: M LAB 11:14
PROVIDERS: ATTEND Family Medicine
DX: E78.5 Hyperlipidemia, unspecified (principal); I10 Essential (primary) hypertension; E11.9 Type 2 diabetes mellitus without complications

== ENCOUNTER → 2025-08-04 | Outpatient (CLI) | payer MEDICARE ==
[2025-08-04 12:04] LABS: CREATININE FOR GFR 0.75 MG/DL (0.55-1.30); GLOMERULAR FILTRATION RATE 78.5 (>32)
== END ==
LOC: M LAB 10:52
PROVIDERS: ATTEND Neurological Surgery
DX: E11.9 Type 2 diabetes mellitus without complications (principal); Z79.82 Long term (current) use of aspirin